=== PATIENT | female | born 1940 | race Caucasian/White ===

== ENCOUNTER → 2019-11-14 | Outpatient (CLI) | payer MEDICARE ==
--- NOTE | 2019-11-19 11:05 | MM ---
Reason for exam: screening (asymptomatic). Last mammogram was performed 1 year and 10 months ago. History: Patient has history of breast cancer at age 66. Family history of breast cancer in sister at age 67. Lumpectomy of the right breast, 2007. Excisional biopsy of the left breast. Chemotherapy. Radiation therapy. Physical Findings: A clinical breast exam by your physician is recommended on an annual basis and results should be correlated with mammographic findings. MG 3D Screening Mammo W/Cad Bilateral CC, MLO, and XCCL view(s) were taken. Prior study comparison: January 09, 2018, mammogram. December 15, 2016, mammogram. The breast tissue is heterogeneously dense. This may lower the sensitivity of mammography. Previous mammotome biopsy in the left breast. Post surgical and post therapy change right beast. Scattered benign course and oil cyst calcifications. Stable post surgical scar on the left. No significant changes when compared with prior studies. ASSESSMENT: Benign, BI-RAD 2 RECOMMENDATION: Routine screening mammogram of both breasts in 1 year.
== END | disposition home or self-care (01) ==
LOC: RADMAMWWP 08:05
PROVIDERS: ATTEND Internal Medicine Geriatric Medicine
DX: Z12.31 Encounter for screening mammogram for malignant neoplasm of breast (principal)
CPT/HCPCS: 77063; 77067

== ENCOUNTER 2021-10-11 21:21 | Emergency (ER) | payer MEDICARE ==
[2021-10-11 21:35] VITALS: BP 135/78; PULSE 91; RESP 22; TEMP 98.5
[2021-10-11] MEDS ORDERED: Acetaminophen-Codeine 300-30mg TAB PO STA (22:31)
[2021-10-11] MEDS ORDERED: CEPHALEXIN 500 MG CAP PO STA (22:31)
[2021-10-11] MEDS ORDERED: metroNIDAZOLE 500 MG TAB PO STA (22:36)
[2021-10-11] MEDS ORDERED: LEVOFLOXACIN 500 MG TAB PO STA (22:37)
[2021-10-11] MEDS ORDERED: ACET/COD 300 MG/30 MG STARTER PACK 6 TAB BTL PO STA (22:37)
--- NOTE | 2021-10-11 22:39 | ED ---
Animal Bite HPI - General Chief Complaint: Animal Bite Stated Complaint: Dog Bite Time Seen by Provider: 10/11/21 21:40 Source: patient, family Mode of arrival: EMS Limitations: no limitations - Related Data Previous Rx's Medication Instructions Recorded Levofloxacin [Levaquin] 500 mg PO DAILY 7 Days #7 tab 10/11/21 metroNIDAZOLE [Flagyl] 500 mg PO TID #21 tab 10/11/21 Allergies Allergy/AdvReac Type Severity Reaction Status Date / Time Penicillins Allergy Rash/Hives Verified 10/11/21 21:35 sulfamethoxazole Allergy Rash/Hives Verified 10/11/21 21:35 [From Bactrim] trimethoprim [From Bactrim] Allergy Rash/Hives Verified 10/11/21 21:35 Review of Systems ROS Statement: Those systems with pertinent positive or pertinent negative responses have been documented in the HPI. ROS Other: All systems not noted in ROS Statement are negative. Past Medical History Past Medical History: Diabetes Mellitus, Thyroid Disorder History of Any Multi-Drug Resistant Organisms: None Reported Past Surgical History: Appendectomy, Breast Surgery, Cholecystectomy, Hysterectomy, Joint Replacement, Orthopedic Surgery, Tonsillectomy Past Psychological History: No Psychological Hx Reported Smoking Status: Never smoker Past Alcohol Use History: None Reported Past Drug Use History: None Reported General Exam Limitations: no limitations Course Vital Signs 10/11/21 21:31 Temperature 98.5 F Pulse Rate 91 Respiratory 22 Rate Blood Pressure 135/78 O2 Sat by Pulse 98 Oximetry Disposition Clinical Impression: Dog bite, Laceration Disposition: HOME SELF-CARE Condition: Good Instructions (If sedation given, give patient instructions): Animal Bite (ED), Care For Your Stitches (ED) Prescriptions: metroNIDAZOLE [Flagyl] 500 mg PO TID #21 tab Levofloxacin [Levaquin] 500 mg PO DAILY 7 Days #7 tab Is patient prescribed a controlled substance at d/c from ED?: No Referrals: Cory Evangelista MD [Primary Care Provider] - 1-2 days
== END 2021-10-11 23:03 | disposition home or self-care (01) ==
LOC: EC 21:21
DX: T14.8XXA Other injury of unspecified body region, initial encounter (principal); E11.9 Type 2 diabetes mellitus without complications; E07.9 Disorder of thyroid, unspecified; Z88.0 Allergy status to penicillin; Z88.2 Allergy status to sulfonamides; W54.0XXA Bitten by dog, initial encounter
CPT/HCPCS: 99283

== ENCOUNTER → 2021-12-15 | Outpatient (CLI) | payer MEDICARE ==
--- NOTE | 2021-12-15 13:28 | BD ---
EXAMINATION TYPE: Axial Bone Density DATE OF EXAM: 12/15/2021 COMPARISON: NONE CLINICAL HISTORY: 81 years year old Female. ICD-10 CODE: M81.0 OSTEOPOROSIS Height: 67 Weight: 223.7 FRAX RISK QUESTIONS: Alcohol (3 or more units per day): no Family History (Parent hip fracture): yes Glucocorticoids (More than 3mos): no (Ex: prednisone, prednisolone, methylprednisolone, dexamethasone, and hydrocortisone). History of Fracture in Adulthood: yes Secondary Osteoporosis: 1. Type 1 Diabetes: no 2. Hyperthyroidism: no 3. Menopause before 45: no 4. Malnutrition: no 5. Chronic liver disease: no Rheumatoid Arthritis: no Current Tobacco Use: no RISK FACTORS HISTORY OF: Surgery to Spine/Hip(right/left)/Wrist (right/left): no Family History of Osteoporosis: no Active: yes Diet low in dairy products/other sources of calcium: yes Postmenopausal woman: yes Lost more than 2 inches in height since high school: no MEDICATIONS: Thyroid Medications: levothyroxine How Long: since age 9 Additional History: EXAM MEASUREMENTS: Bone mineral densitometry was performed using the [employer] System. Bone mineral density as measured about the Lumbar spine is: ----- L1-L4(G/cm2): 1.358 T Score Values are as follows: ----- L1: -0.4 ----- L2: 1.3 ----- L3: 2.2 ----- L4: 2.8 ----- L1-L4: 1.5 Bone mineral density : baseline Bone mineral density about the R hip (g/cm2): 0.709 Bone mineral density about the L hip (g/cm2): 0.743 T Score values are as follows: -----R Neck: -2.4 -----L Neck: -2.1 -----R Total: -1.6 -----L Total: -1.5 Bone mineral density : baseline FRAX%s: The graph provided illustrates a 23.7% chance for a major osteoporotic fx and a 7.4% chance f or the hips probability for fx in 10 years time. IMPRESSION: Osteopenia (T Score between -2.5 and -1) of the femoral necks. There is slightly increased risk of fracture and the patient may be considered for treatment. Re-Screen 2-5 years. NOTE: T-SCORE=SD OF THE YOUNG ADULT MEAN.
--- NOTE | 2021-12-16 09:42 | MM ---
Reason for Exam: Screening (asymptomatic). Last mammogram was performed 2 year(s) and 1 month(s) ago. Patient History: Breast cancer, right, age 66. Excisional Biopsy on the Left side. 2007, Lumpectomy on the Right side. Chemotherapy. Radiation Therapy. Sister had breast cancer, age 67. Prior Study Comparison: 12/15/2016 Screening Mammogram, Unknown. 01/09/2018 Screening Mammogram, Unknown. 11/14/2019 Bilateral Screening Mammogram, [facility]. Tissue Density: The breast tissue is heterogeneously dense. This may lower the sensitivity of mammography. Findings: Analyzed By CAD. There is no suspicious group of microcalcifications or new suspicious mass in either breast. Previous mammotome biopsy left breast. Postsurgical and posttherapy changes to the right breast. Scattered benign coarse and oil cyst calcifications. Stable postsurgical scar on the left. No significant change from prior exams. Overall Assessment: Benign, BI-RAD 2 Management: Screening Mammogram of both breasts in 1 year. A clinical breast exam by your physician is recommended on an annual basis and results should be correlated with mammographic findings. Electronically signed and approved by: Tremaine Avila D.O.
== END | disposition home or self-care (01) ==
LOC: RADBDWWP 12:26
PROVIDERS: ATTEND Internal Medicine Geriatric Medicine
DX: Z12.31 Encounter for screening mammogram for malignant neoplasm of breast (principal); Z13.820 Encounter for screening for osteoporosis; M85.89 Other specified disorders of bone density and structure, multiple sites; Z80.3 Family history of malignant neoplasm of breast
CPT/HCPCS: 77063; 77067; 77080

== ENCOUNTER → 2023-03-29 | Outpatient (CLI) | payer MEDICARE ==
--- NOTE | 2023-03-31 12:40 | MM ---
Reason for Exam: Screening (asymptomatic). Last mammogram was performed 1 year(s) and 3 month(s) ago. Patient History: Menarche at age 9. First Full-Term at age 18. Postmenopausal. Breast cancer, right, age 66. Previous chest radiation therapy at age 66. Previous chemotherapy at age 66. Excisional Biopsy on the Left side. 2007, Lumpectomy on the Right side. Chemotherapy. Radiation Therapy. Sister had breast cancer, age 67. Prior Study Comparison: 01/09/2018 Screening Mammogram, Unknown. 11/14/2019 Bilateral Screening Mammogram, [facility]. 12/15/2021 Bilateral MG 3D screening mammo w/cad, [facility]. Tissue Density: The breast tissue is heterogeneously dense. This may lower the sensitivity of mammography. Findings: Analyzed By CAD. There is no suspicious group of microcalcifications or new suspicious mass in either breast. There is evidence of postsurgical clip marker noted in the left breast. Bilateral benign-appearing calcifications. Stable lymph nodes within the left axilla. Unchanged from multiple prior exams. Overall Assessment: Benign, BI-RAD 2 Management: Screening Mammogram of both breasts in 1 year. . Patient should continue monthly self-breast exams. A clinical breast exam by your physician is recommended on an annual basis. This exam should not preclude additional follow-up of suspicious palpable abnormalities. Note on Alanis scores and lifetime risk: 1. A Alanis score greater than 3% is considered moderate risk. If this is the case, consider specialist referral to assess eligibility for a risk reducing agent. 2. If overall lifetime risk for the development of breast cancer is 20% or higher, the patient may qualify for future screening with alternating mammogram and breast MRI. Electronically signed and approved by: Cory Padilla M.D. Radiologis
== END | disposition home or self-care (01) ==
LOC: RADMAMWWP 12:17
PROVIDERS: ATTEND Internal Medicine Geriatric Medicine
DX: Z12.31 Encounter for screening mammogram for malignant neoplasm of breast (principal); Z78.0 Asymptomatic menopausal state; Z85.3 Personal history of malignant neoplasm of breast; Z80.3 Family history of malignant neoplasm of breast
CPT/HCPCS: 77063; 77067

== ENCOUNTER → 2024-07-16 | Outpatient (CLI) | payer MEDICARE ==
--- NOTE | 2024-07-16 14:21 | MM ---
Reason for Exam: Screening (asymptomatic). Last mammogram was performed 1 year(s) and 4 month(s) ago. Patient History: Menarche at age 9. First Full-Term at age 18. Postmenopausal. Breast cancer, right, age 66. Previous chest radiation therapy at age 66. Previous chemotherapy at age 66. Excisional Biopsy on the Left side. 2006, Lumpectomy on the Right side. Chemotherapy. Radiation Therapy. Sister had breast cancer, age 67. Prior Study Comparison: 11/14/2019 Bilateral Screening Mammogram, [facility]. 12/15/2021 Bilateral MG 3D screening mammo w/cad, [facility]. 03/29/2023 Bilateral MG 3D screening mammo w/cad, [facility]. Tissue Density: The breasts are heterogeneously dense, which may obscure small masses. Findings: Analyzed By CAD. Right breast: There is no suspicious group of microcalcifications or new suspicious mass. Benign-appearing calcifications right breast. Left breast: There is no suspicious group of microcalcifications or new suspicious mass. Benign-appearing calcifications left breast. Overall Assessment: Benign, BI-RAD 2 Management: Screening Mammogram of both breasts in [address] [facility] will attempt to contact patient to return for supplemental views and ultrasound if indicated. Patient should continue monthly self-breast exams. A clinical breast exam by your physician is recommended on an annual basis. This exam should not preclude additional follow-up of suspicious palpable abnormalities. Note on Alanis scores and lifetime risk: 1. A Alanis score greater than 3% is considered moderate risk. If this is the case, consider specialist referral to assess eligibility for a risk reducing agent. 2. If overall lifetime risk for the development of breast cancer is 20% or higher, the patient may qualify for future screening with alternating mammogram and breast MRI. [facility], , 07/16/2024 2:18 PM. Electronically signed and approved by: Gilberto Saunders DO
== END | disposition home or self-care (01) ==
LOC: RADMAMWWP 13:07
PROVIDERS: ATTEND Internal Medicine Geriatric Medicine
DX: Z12.31 Encounter for screening mammogram for malignant neoplasm of breast (principal); R92.333 Mammographic heterogeneous density, bilateral breasts; Z78.0 Asymptomatic menopausal state; Z85.3 Personal history of malignant neoplasm of breast; Z80.3 Family history of malignant neoplasm of breast
CPT/HCPCS: 77063; 77067